=== PATIENT | male | born 1965 | race Caucasian/White ===

== ENCOUNTER → 2017-05-23 | Outpatient (CLI) | payer OTHER ==
[~2017-05-23] MED LIST: BACTRIM DS 8001 TA1 PO; SIMVASTATIN20 MG PO
[2017-05-23 12:05] LABS: HEMOGLOBIN 13.1 g/dL (14.1-18.0); LYMPH # 1.2 K/mm3 (0.7-4.5); LYMPH % 12.1 % (10-50)
[2017-05-23 12:53] LABS: BUN 14 mg/dL (7-18)
[2017-05-23 13:15] LABS: GFR (ESTIMATED) 59 ML/MIN (>60)
== END ==
LOC: LAB 11:22
PROVIDERS: Surgery
DX: Z01.818 Encounter for other preprocedural examination (principal); L02.212 Cutaneous abscess of back [any part, except buttock and flank]